=== PATIENT | female | born 1970 | race Caucasian/White ===

== ENCOUNTER 2019-04-07 10:22 | Emergency (ER) | payer MEDICAID ==
[~2019-04-07] VITALS: Ht 172.7 cm; Wt 90.7 kg
[~2019-04-07 10:22] MED LIST: MEGE40TA PO
[2019-04-07 10:28] VITALS: BP 167/97
[2019-04-07] MEDS ORDERED: LIDOCAINE /MPF 1% VIAL 5 ML VIAL ONE ×2 (10:31→10:44)
[2019-04-07] MEDS ORDERED: LIDOCAINE 1% INJ 50 ML MDV IJ ONE (11:00)
== END 2019-04-07 11:07 | disposition home or self-care (01) ==
LOC: ER 10:22
DX: S61.215A Laceration without foreign body of left ring finger without damage to nail, initial encounter (principal); I10 Essential (primary) hypertension; F17.200 Nicotine dependence, unspecified, uncomplicated; Z98.890 Other specified postprocedural states; W26.0XXA Contact with knife, initial encounter; Y93.89 Activity, other specified; Y92.89 Other specified places as the place of occurrence of the external cause; Y99.8 Other external cause status
CPT/HCPCS: 12002; 99283; A6403; J3490 ×2

== ENCOUNTER 2021-08-30 03:20 | Emergency (ER) | payer MEDICAID, OTHER ==
[~2021-08-30] VITALS: Ht 172.7 cm; Wt 119.3 kg
[~2021-08-30 03:20] MED LIST changes: -MEGE40TA PO; +MEGE40TA5 PO
--- NOTE | 2021-08-30 03:40 | NUR ---
PT BIBSELF C/O SOB X2 DAYS +UNABLE TO TASTE OF SMELL +CP WHEN COUGHING. PT ALERT AND ORIENTED X3. PT PLACED ON MONITOR WILL CONTINUE TO MONITOR.
[2021-08-30] MEDS ORDERED: IBUPROFEN 400 MG TABLET ONE (03:41)
[2021-08-30] MEDS ORDERED: ONDANSETRON 4 MG TAB.RAPDIS ONE (03:41)
[2021-08-30] MEDS: IBUPROFEN 400 MG TABLET PO ONE (03:45)
[2021-08-30] MEDS: ONDANSETRON 4 MG TAB.RAPDIS SL ONE (03:45)
[2021-08-30] MEDS ORDERED: DEXAMETHASONE SOD PHOSPHATE 10 MG/ML VIAL ONE (04:17)
[2021-08-30] MEDS: DEXAMETHASONE SOD PHOSPHATE 4 MG/ML VIAL IM ONE (04:23)
--- NOTE | 2021-08-30 05:22 | NUR ---
Patient discharged to home in stable condition. Written and verbal after care instructions given. Patient verbalizes understanding of instruction.
[2021-08-30 05:23] VITALS: BP 137/81
== END 2021-08-30 05:24 | disposition home or self-care (01) ==
LOC: ER 03:22
DX: R06.02 Shortness of breath (principal); R05.9 Cough, unspecified; I10 Essential (primary) hypertension; R50.9 Fever, unspecified; R43.8 Other disturbances of smell and taste; Z20.822 Contact with and (suspected) exposure to COVID-19
CPT/HCPCS: 71045; 87426; 96372; 99284; C9803; J1100; Q0162; U0003

== ENCOUNTER 2022-07-05 15:38 | Emergency (ER) | payer OTHER ==
[~2022-07-05] VITALS: Ht 167.6 cm; Wt 111.1 kg
--- NOTE | 2022-07-05 16:10 | NUR ---
BIBS W/ C/O FEELING OF OUT OF BREATH W/ ACTIVITY, PALPITATIONS, AND ANXIETY; PT VERBALIZES THAT IT'S BEEN GOING ON FOR A COUPLE OF MONTHS. TO ER BED 9.
--- NOTE | 2022-07-05 16:49 | NUR ---
SIL[employer] W[employer]ER AT BEDSIDE FOR XRAY
[2022-07-05 17:35] LABS: BASOPHILS # (AUTO) 0.1 K/uL (0.0-0.2); BASOPHILS % (AUTO) 0.8 % (0.0-2.0); EOSINOPHILS % (AUTO) 3.5 % (0.0-6.0); HEMATOCRIT 39 % (33-45); HEMOGLOBIN 12.5 g/dL (11.5-14.8); LYMPHOCYTES # (AUTO) 1.5 K/uL (0.8-4.8); LYMPHOCYTES % (AUTO) 24.2 % (20.0-44.0); MEAN CORPUSCULAR HGB CONC 33 g/dl (31.0-36.0); MEAN CORPUSCULAR VOLUME 85 fL (82-100); MONOCYTES # (AUTO) 0.5 K/uL (0.1-1.30); MONOCYTES % (AUTO) 7.5 % (2.0-12.0); PLATELET COUNT (AUTO) 200 K/uL (150-450); RED BLOOD CELL COUNT(AUTO) 4.53 MIL/uL (4.0-5.2); WHITE BLOOD COUNT (AUTO) 6.3 K/uL (4.3-11.0)
[2022-07-05 17:44] LABS: CALCIUM, SERUM 8.5 mg/dL (8.5-10.1); CARBON DIOXIDE 26 mmol/L (21-32); CHLORIDE 108 mmol/L (98-107); CREATININE 0.8 mg/dL (0.6-1.3); GLUCOSE 108 mg/dL (74-106); POTASSIUM 4.1 mmol/L (3.5-5.1); SODIUM SERUM 141 mmol/L (136-145); UREA NITROGEN, BLOOD 13 mg/dL (7-18)
[2022-07-05] MEDS ORDERED: DOXYCYCLINE HYCLATE (100 MG) 100 MG TABLET ONE (18:20)
[2022-07-05] MEDS ORDERED: CEFTRIAXONE 500 MG VIAL ONE (18:20)
[2022-07-05] MEDS ORDERED: LIDOCAINE 1% INJ 50 ML MDV IJ ONE (18:21)
[2022-07-05] MEDS ORDERED: LORAZEPAM 0.5 MG TABLET PO ONE (18:30)
[2022-07-05] MEDS ORDERED: DOXYCYCLINE HYCLATE (100 MG) 100 MG TABLET PO ONE (18:30)
[2022-07-05] MEDS ORDERED: CEFTRIAXONE 500 MG VIAL IM ONE (18:30)
[2022-07-05] MEDS ORDERED: LORAZEPAM 0.5 MG TABLET ONE (18:32)
--- NOTE | 2022-07-05 19:00 | NUR ---
COVID SWAB COLLECTED AND SENT TO LAB.
[2022-07-05] MEDS ORDERED: LISI10TA29 PO (19:18)
[2022-07-05] MEDS ORDERED: FUROSEMIDE 20 MG/2 ML VIAL IV ONE (19:30)
[2022-07-05] MEDS ORDERED: FUROSEMIDE 20 MG/2 ML VIAL ONE (19:31)
[2022-07-05] MEDS ORDERED: NITROGLYCERIN PACKET 1 GM PACKET TD ONE (20:00)
[2022-07-05] MEDS ORDERED: NITROGLYCERIN PACKET 1 GM PACKET ONE (20:45)
--- NOTE | 2022-07-05 21:15 | NUR ---
SPOKE WITH ABRAHAM, [employer]IST [facility] [place] ON THE PHONE FOR CLINICALS. PT IS GOING TO BE TRANSFERRED TO [facility]
--- NOTE | 2022-07-05 21:39 | NUR ---
DR. RAMESH ON THE PHONE WITH KESHAV MCRAE FOR PEER TO PEER. PT ACCEPTED AT [facility]. AWAITING FOR TRANSFER INFO
--- NOTE | 2022-07-05 23:47 | NUR ---
REPORT [phone] RAMESH
--- NOTE | 2022-07-05 23:55 | NUR ---
REPORT GIVEN TO LINETTE DOVE
--- NOTE | 2022-07-05 23:58 | NUR ---
[facility] CALLED FOR BLS TO [facility] ETA - 2 HOURS
--- NOTE | 2022-07-06 01:25 | NUR ---
[facility] 300 AT BEDSIDE FOR PT TRANSPORT TO [facility]. REPORT GIVEN NAD NOTED.
[2022-07-06 01:51] VITALS: BP 132/74
== END 2022-07-06 01:51 | disposition short-term general hospital (02) ==
LOC: ER 15:43
DX: I11.0 Hypertensive heart disease with heart failure (principal); I50.9 Heart failure, unspecified; Z91.14 Patient's other noncompliance with medication regimen; Z20.2 Contact with and (suspected) exposure to infections with a predominantly sexual mode of transmission; Z20.822 Contact with and (suspected) exposure to COVID-19
CPT/HCPCS: 99285; 96374; 71045; 87426; 93005; 85025; 80048; 36415; 84484; 87081; 83880; 87491; 87591; 96372; J1940; J3490; J0696; C9803